=== PATIENT | male | born 1975 | race Hispanic/Latino ===

== ENCOUNTER 2020-07-14 07:49 | Emergency (ER) | payer BC ==
[~2020-07-14] VITALS: Ht 162.6 cm; Wt 117.9 kg
[2020-07-14 08:33] LABS: BASOPHILS % 0.4 % (0.0-1.0); EOSINOPHILS # (AUTO) 0.1 (0.0-0.4); EOSINOPHILS % 1.1 % (0.0-6.0); HEMATOCRIT 44.7 % (38.2-49.6); HEMOGLOBIN 15.5 g/dL (14.0-18.0); LYMPHOCYTES # (AUTO) 2.6 (1.0-3.2); MEAN CORPUSCULAR HEMOGLOBIN 30.7 pg (28-32); MEAN CORPUSCULAR HGB CONC 34.7 g/dL (31-35); MEAN CORPUSCULAR VOLUME 88.5 fL (81-99); MONOCYTES # (AUTO) 0.5 (0.2-0.8); MONOCYTES % 9.5 % (4.4-11.3); NEUTROPHILS # (AUTO) 2.2 (2.1-6.9); NEUTROPHILS % 40.3 % (38.7-80.0); PLATELET COUNT 220 x10e3/uL (140-360); RED BLOOD COUNT 5.05 x10e6/uL (4.3-5.7); RED CELL DISTRIBUTION WIDTH 12.5 % (11.7-14.4)
[2020-07-14 08:51] LABS: ALANINE AMINOTRANSFERASE 21 IU/L (0-55); ALBUMIN/GLOBULIN RATIO 1.1 (0.8-2.0); ALKALINE PHOSPHATASE 105 IU/L (40-150); BLOOD UREA NITROGEN 22 mg/dL (7-26); BUN/CREATININE RATIO 20 (6-25); CALCIUM 8.9 mg/dL (8.4-10.2); CARBON DIOXIDE 22 mmol/L (22-29); CHLORIDE 102 mmol/L (98-107); CREATININE, SERUM 1.11 mg/dL (0.72-1.25); EST GLOMERULAR FILTRATION RATE > 60 ML/MIN (60-); GLUCOSE 332 mg/dL (74-118); SODIUM 136 mmol/L (136-145)
[2020-07-14 10:06] VITALS: BP 113/74
[2020-07-14 10:43] LABS: EOSINOPHILS % (MANUAL) 3 % (0-7); LYMPHOCYTES % (MANUAL) 26 % (19-48); MONOCYTES % (MANUAL) 5 % (3.4-9.0); NEUTROPHILS % (MANUAL) 58 % (40-74); PLATELET ESTIMATE ADEQUATE; PLATELET MORPHOLOGY COMMENT NORMAL; RBC MORPHOLOGY COMMENT NORMAL
== END 2020-07-14 10:07 | disposition home or self-care (01) ==
LOC: ER 08:09
DX: R07.9 Chest pain, unspecified (principal); E11.65 Type 2 diabetes mellitus with hyperglycemia; I10 Essential (primary) hypertension
CPT/HCPCS: 36415; 71045; 80053; 83690; 84484; 85025; 93005; 99283

== ENCOUNTER 2021-05-24 16:18 | Inpatient (IN) | payer BC ==
[~2021-05-24] VITALS: Ht 162.6 cm; Wt 111.4 kg
[2021-05-24] MEDS ORDERED: DEXAMETHASONE SOD PHOS 10 MG/1 ML VIAL IM STA (17:12)
[2021-05-24 18:15] LABS: BASOPHILS % 0.3 % (0.0-1.0); EOSINOPHILS % 0.1 % (0.0-6.0); HEMATOCRIT 39.7 % (38.2-49.6); HEMOGLOBIN 12.8 g/dL (14.0-18.0); LYMPHOCYTES # (AUTO) 1.5 (1.0-3.2); LYMPHOCYTES % 21.3 % (18.0-39.1); MEAN CORPUSCULAR HEMOGLOBIN 29.6 pg (28-32); MEAN CORPUSCULAR HGB CONC 32.2 g/dL (31-35); MEAN CORPUSCULAR VOLUME 91.7 fL (81-99); MONOCYTES # (AUTO) 0.3 (0.2-0.8); MONOCYTES % 4.1 % (4.4-11.3); NEUTROPHILS % 73.8 % (38.7-80.0); PLATELET COUNT 287 x10e3/uL (140-360); RED BLOOD COUNT 4.33 x10e6/uL (4.3-5.7); RED CELL DISTRIBUTION WIDTH 12.6 % (11.7-14.4)
[2021-05-24 18:28] LABS: ALBUMIN 3.1 g/dL (3.5-5.0); ALBUMIN/GLOBULIN RATIO 0.7 (0.8-2.0); ANION GAP 17.7 mmol/L (8-16); CALCIUM 9.5 mg/dL (8.4-10.2); CREATININE, SERUM 1.12 mg/dL (0.72-1.25); POTASSIUM 3.7 mmol/L (3.5-5.1)
[2021-05-24 20:25] LABS: CREATINE KINASE MB 1.3 ng/mL (0-5.0)
[2021-05-24] MEDS ORDERED: DEXTROSE 50% SYRINGE 50 ML IV PRN (21:00)
[2021-05-24] MEDS: INSULIN REGULAR, HUMAN 100 UNIT/1 ML SQ SCH (21:00)
[2021-05-24] MEDS ORDERED: ACETAMINOPHEN 325 MG TAB PO PRN (21:00)
[2021-05-24 21:17] LABS: CLARITY,URINE SL CLOUDY (CLEAR); COLOR,URINE AMBER (YELLOW); KETONES,URINE 1+ (NEGATIVE); LEUKOCYTE ESTERASE ,URINE NEGATIVE (NEGATIVE); NITRITE,URINE NEGATIVE (NEGATIVE); PROTEIN,URINE DIPSTICK >=300 (NEGATIVE); URINE UROBILINOGEN 1 mg/dL (0.2 - 1)
[2021-05-24 21:21] LABS: BACTERIA,URINE MANY /HPF; MUCUS,URINE FEW (RARE)
[2021-05-24 21:45] VITALS: BP 130/87
[2021-05-24 22:00] VITALS: BP 130/87
[2021-05-24] MEDS ORDERED: METFORMIN500 MG/5 M PO (22:48)
[2021-05-24] MEDS ORDERED: OMEPRAZOLE40 MG PO (22:48)
[2021-05-24] MEDS ORDERED: atrovastatin PO (22:48)
[2021-05-24] MEDS ORDERED: LOSARTAN POTASS25 MG PO (22:48)
[2021-05-25] VITALS (7 sets, daily range): BP systolic 104–137; BP diastolic 60–87
[2021-05-25] MEDS ORDERED: ozempic (02:03)
[2021-05-25 06:24] LABS: BASOPHILS % 0.2 % (0.0-1.0); HEMATOCRIT 38.3 % (38.2-49.6); HEMOGLOBIN 12.9 g/dL (14.0-18.0); LYMPHOCYTES # (AUTO) 0.7 (1.0-3.2); LYMPHOCYTES % 12.2 % (18.0-39.1); MEAN CORPUSCULAR HEMOGLOBIN 30.2 pg (28-32); MEAN CORPUSCULAR HGB CONC 33.7 g/dL (31-35); MEAN CORPUSCULAR VOLUME 89.7 fL (81-99); MONOCYTES # (AUTO) 0.1 (0.2-0.8); MONOCYTES % 2.5 % (4.4-11.3); NEUTROPHILS # (AUTO) 4.7 (2.1-6.9); NEUTROPHILS % 84.6 % (38.7-80.0); PLATELET COUNT 326 x10e3/uL (140-360); RED BLOOD COUNT 4.27 x10e6/uL (4.3-5.7); RED CELL DISTRIBUTION WIDTH 12.6 % (11.7-14.4)
[2021-05-25 06:45] LABS: ALBUMIN 2.9 g/dL (3.5-5.0); ALBUMIN/GLOBULIN RATIO 0.6 (0.8-2.0); ANION GAP 16.3 mmol/L (8-16); CALCIUM 9.6 mg/dL (8.4-10.2); CREATININE, SERUM 0.98 mg/dL (0.72-1.25); POTASSIUM 4.3 mmol/L (3.5-5.1)
[2021-05-25] MEDS: INSULIN REGULAR, HUMAN 100 UNIT/1 ML SQ SCH ×2 (08:30→11:57)
[2021-05-25] MEDS ORDERED: DEXTROSE 50% SYRINGE 50 ML IV PRN (09:15)
[2021-05-25] MEDS ORDERED: REMDESIVIR 100MG 200 MG in SODIUM CHLORIDE 0.9% 100 ML IV ONE (11:00)
[2021-05-25] MEDS: PANTOPRAZOLE SOD 40 MG TABEC PO SCH (11:11)
[2021-05-25] MEDS ORDERED: SODIUM CHLORIDE 0.9% 250ML 250 ML ONE (11:18)
[2021-05-25] MEDS ORDERED: INSULIN LISPRO 100 UNIT/1 ML 3ML VIAL SQ SCH (11:30)
[2021-05-25 11:32] LABS: LYMPHOCYTES % (MANUAL) 7 % (19-48); NEUTROPHILS % (MANUAL) 93 % (40-74); PLATELET ESTIMATE ADEQUATE; PLATELET MORPHOLOGY COMMENT NORMAL; RBC MORPHOLOGY COMMENT NORMAL
[2021-05-25] MEDS: LOSARTAN POTASSIUM 25 MG TAB PO SCH (11:56)
[2021-05-25] MEDS: METFORMIN HCL 500 MG TAB PO SCH (17:15)
[2021-05-25] MEDS: ENOXAPARIN SOD INJ 40 MG/0.4 ML SYR SC SCH (17:15)
[2021-05-25] MEDS: INSULIN LISPRO 100 UNIT/1 ML 3ML VIAL SQ SCH ×2 (17:30→21:45)
[2021-05-25] MEDS ORDERED: AZITHROMYCIN 250 MG TAB PO SCH (17:30)
[2021-05-25] MEDS ORDERED: ATORVASTATIN 20 MG TAB PO SCH (21:00)
[2021-05-26] VITALS: BP 107/83
[2021-05-26 04:00] VITALS: BP 90/57
[2021-05-26] MEDS: INSULIN LISPRO 100 UNIT/1 ML 3ML VIAL SQ SCH ×4 (08:30→21:00)
[2021-05-26] MEDS: DEXAMETHASONE SOD PHOS INJ 4 MG/ML SDV IV SCH (09:28)
[2021-05-26] MEDS: METFORMIN HCL 500 MG TAB PO SCH ×2 (09:28→18:06)
[2021-05-26] MEDS: PANTOPRAZOLE SOD 40 MG TABEC PO SCH (09:28)
[2021-05-26] MEDS: LOSARTAN POTASSIUM 25 MG TAB PO SCH (09:28)
[2021-05-26] MEDS: CEFTRIAXONE 2 GM in SODIUM CHLORIDE 0.9% 100 ML IV SCH (09:28)
[2021-05-26] MEDS: REMDESIVIR 100MG 100 MG in SODIUM CHLORIDE 0.9% 100 ML IV SCH (14:07)
[2021-05-26 17:32] LABS: ALBUMIN 3.2 g/dL (3.5-5.0); BILIRUBIN,DIRECT 0.2 mg/dL (0.0-0.5)
[2021-05-26 17:52] LABS: FERRITIN 1108.6 ng/mL (21.81-274.66)
[2021-05-26] MEDS: ENOXAPARIN SOD INJ 40 MG/0.4 ML SYR SC SCH (18:06)
[2021-05-26 20:00] VITALS: BP 111/71
[2021-05-26 21:00] VITALS: BP 111/71
[2021-05-27 04:00] VITALS: BP 113/74
[2021-05-27 05:34] LABS: ALBUMIN 2.7 g/dL (3.5-5.0); ALBUMIN/GLOBULIN RATIO 0.7 (0.8-2.0); ANION GAP 14.7 mmol/L (8-16); CREATININE, SERUM 0.9 mg/dL (0.72-1.25); POTASSIUM 3.7 mmol/L (3.5-5.1)
[2021-05-27] MEDS: INSULIN LISPRO 100 UNIT/1 ML 3ML VIAL SQ SCH ×4 (07:30→20:35)
[2021-05-27 09:10] VITALS: BP 113/74
[2021-05-27 09:20] VITALS: BP 117/88
[2021-05-27] MEDS: METFORMIN HCL 500 MG TAB PO SCH ×2 (10:14→17:25)
[2021-05-27] MEDS: PANTOPRAZOLE SOD 40 MG TABEC PO SCH (10:14)
[2021-05-27] MEDS: DEXAMETHASONE SOD PHOS INJ 4 MG/ML SDV IV SCH (10:16)
[2021-05-27] MEDS: LOSARTAN POTASSIUM 25 MG TAB PO SCH (10:16)
[2021-05-27] MEDS: CEFTRIAXONE 2 GM in SODIUM CHLORIDE 0.9% 100 ML IV SCH (10:17)
[2021-05-27 12:41] VITALS: BP 107/75
[2021-05-27 16:49] VITALS: BP 123/83
[2021-05-27] MEDS: REMDESIVIR 100MG 100 MG in SODIUM CHLORIDE 0.9% 100 ML IV SCH (17:25)
[2021-05-27] MEDS: ENOXAPARIN SOD INJ 40 MG/0.4 ML SYR SC SCH (17:26)
[2021-05-27 21:00] VITALS: BP 123/83
[2021-05-28] VITALS (8 sets, daily range): BP systolic 105–121; BP diastolic 65–85
[2021-05-28 06:57] LABS: ALBUMIN 2.9 g/dL (3.5-5.0); ALBUMIN/GLOBULIN RATIO 0.8 (0.8-2.0); CALCIUM 9.5 mg/dL (8.4-10.2); CREATININE, SERUM 0.93 mg/dL (0.72-1.25)
[2021-05-28] MEDS: INSULIN LISPRO 100 UNIT/1 ML 3ML VIAL SQ SCH ×4 (07:30→21:34)
[2021-05-28] MEDS: METFORMIN HCL 500 MG TAB PO SCH ×2 (08:48→16:24)
[2021-05-28] MEDS: DEXAMETHASONE SOD PHOS INJ 4 MG/ML SDV IV SCH (08:48)
[2021-05-28] MEDS: LOSARTAN POTASSIUM 25 MG TAB PO SCH (08:49)
[2021-05-28] MEDS: CEFTRIAXONE 2 GM in SODIUM CHLORIDE 0.9% 100 ML IV SCH (08:49)
[2021-05-28] MEDS: PANTOPRAZOLE SOD 40 MG TABEC PO SCH (09:26)
[2021-05-28] MEDS: REMDESIVIR 100MG 100 MG in SODIUM CHLORIDE 0.9% 100 ML IV SCH (13:25)
[2021-05-28] MEDS: ENOXAPARIN SOD INJ 40 MG/0.4 ML SYR SC SCH (16:24)
[2021-05-29] VITALS (7 sets, daily range): BP systolic 101–115; BP diastolic 56–78
[2021-05-29] MEDS: INSULIN LISPRO 100 UNIT/1 ML 3ML VIAL SQ SCH ×4 (07:30→21:00)
[2021-05-29] MEDS: LOSARTAN POTASSIUM 25 MG TAB PO SCH (08:33)
[2021-05-29] MEDS: METFORMIN HCL 500 MG TAB PO SCH ×2 (08:33→16:40)
[2021-05-29] MEDS: DEXAMETHASONE SOD PHOS INJ 4 MG/ML SDV IV SCH (08:33)
[2021-05-29] MEDS: CEFTRIAXONE 2 GM in SODIUM CHLORIDE 0.9% 100 ML IV SCH (08:33)
[2021-05-29] MEDS: PANTOPRAZOLE SOD 40 MG TABEC PO SCH (08:33)
[2021-05-29] MEDS: REMDESIVIR 100MG 100 MG in SODIUM CHLORIDE 0.9% 100 ML IV SCH (15:17)
[2021-05-29] MEDS: ENOXAPARIN SOD INJ 40 MG/0.4 ML SYR SC SCH (16:40)
[2021-05-30] VITALS: BP 121/77
[2021-05-30 04:00] VITALS: BP 116/64
[2021-05-30] MEDS ORDERED: OMEPRAZOLE 20 MG CAP PO SCH (06:00)
[2021-05-30 06:39] LABS: ALBUMIN/GLOBULIN RATIO 0.8 (0.8-2.0); ANION GAP 12.7 mmol/L (8-16); CALCIUM 9.3 mg/dL (8.4-10.2); CREATININE, SERUM 0.85 mg/dL (0.72-1.25); POTASSIUM 3.7 mmol/L (3.5-5.1)
[2021-05-30] MEDS: INSULIN LISPRO 100 UNIT/1 ML 3ML VIAL SQ SCH (07:30)
[2021-05-30] MEDS: METFORMIN HCL 500 MG TAB PO SCH (09:05)
[2021-05-30] MEDS: PANTOPRAZOLE SOD 40 MG TABEC PO SCH (09:05)
[2021-05-30] MEDS: LOSARTAN POTASSIUM 25 MG TAB PO SCH (09:05)
[2021-05-30] MEDS: DEXAMETHASONE SOD PHOS INJ 4 MG/ML SDV IV SCH (09:05)
[2021-05-30 09:24] VITALS: BP 122/78
[2021-05-30 09:49] VITALS: BP 122/78
[2021-05-30 11:00] VITALS: BP 118/77
== END 2021-05-30 11:50 | disposition home or self-care (01) | DRG 177 ==
LOC: ER 16:57 → ERHOLD 19:32 → MED/SURG2 21:45 → IMCU 05-25 15:13
PROVIDERS: ADMIT Internal Medicine; ATTEND Internal Medicine
PROC: 8E0ZXY6 Isolation (ICD-10-PCS; 2021-05-24)
PROC: XW033E5 Introduction of Remdesivir Anti-infective into Peripheral Vein, Percutaneous Approach, New Technology Group 5 (ICD-10-PCS; principal; 2021-05-25)
DX: U07.1 COVID-19 (principal); J12.82 Pneumonia due to coronavirus disease 2019; J96.01 Acute respiratory failure with hypoxia; Z68.41 Body mass index [BMI] 40.0-44.9, adult; E66.01 Morbid (severe) obesity due to excess calories; E78.5 Hyperlipidemia, unspecified; K75.81 Nonalcoholic steatohepatitis (NASH); E11.9 Type 2 diabetes mellitus without complications; E78.00 Pure hypercholesterolemia, unspecified; I10 Essential (primary) hypertension
CPT/HCPCS: 36415; 71045; 76705; 80053; 80076; 81001; 82390; 82550; 82553; 82728; 82948; 83540; 84484; 85025; 86039; 86255; 87040; 87086; 93005; 94799; 96372; 99284; J0456; J0696; J1100; J1650; J7050; U0002

== ENCOUNTER 2023-12-03 21:56 | Emergency (ER) | payer BC ==
[~2023-12-03] VITALS: Ht 162.6 cm; Wt 113.4 kg
[~2023-12-03 21:56] MED LIST: LOSARTAN POTASS25 MG PO; METFORMIN500 MG/5 M PO; OMEPRAZOLE40 MG PO; atrovastatin PO; ozempic
[2023-12-03 22:09] VITALS: PULSE 58; RESP 19; TEMP 98.9
[2023-12-03] MEDS: KETOROLAC TROMETHAMINE 60 MG/2 ML VIAL IM STA (22:27)
[2023-12-04] MEDS: HYDROCODONE/APAP 5MG-325MG TAB PO STA (00:23)
[2023-12-04] MEDS ORDERED: HYDROCODON-ACE1 EA11 PO (00:27)
[2023-12-04 01:39] VITALS: BP 132/84; PULSE 71; RESP 18; TEMP 98.3; O2SAT 100
== END 2023-12-04 00:55 | disposition home or self-care (01) ==
LOC: ER 21:59
DX: M54.9 Dorsalgia, unspecified (principal); I10 Essential (primary) hypertension; E78.5 Hyperlipidemia, unspecified; E11.9 Type 2 diabetes mellitus without complications; Z79.84 Long term (current) use of oral hypoglycemic drugs; Z79.85 Long-term (current) use of injectable non-insulin antidiabetic drugs; K21.9 Gastro-esophageal reflux disease without esophagitis; M47.817 Spondylosis without myelopathy or radiculopathy, lumbosacral region; Z79.899 Other long term (current) drug therapy
CPT/HCPCS: 72100; 99283; J1885